=== PATIENT | male | born 1965 | race Caucasian/White ===

== ENCOUNTER 2022-08-22 06:46 | Day surgery (SDC) | payer OTHER ==
[~2022-08-22] VITALS: Ht 185.4 cm; Wt 90.3 kg
[~2022-08-22 06:46] MED LIST: ACEBUTCAFT PO; AMOX500 PO; CYCL10 PO; HYDACE5 PO; NAPR500 PO; OTC PAIN MEDS
[2022-08-22] MEDS ORDERED: ALLO100 (07:02)
== END 2022-08-22 09:17 | disposition home or self-care (01) ==
LOC: ORSCSDS 06:46
PROVIDERS: Internal Medicine Gastroenterology
PROC: 0DBM8ZX Excision of Descending Colon, Via Natural or Artificial Opening Endoscopic, Diagnostic (ICD-10-PCS; principal; 2022-08-22 08:00)
PROC: 0DBH8ZX Excision of Cecum, Via Natural or Artificial Opening Endoscopic, Diagnostic (ICD-10-PCS; principal; 2022-08-22 08:00)
PROC: 0DBN8ZX Excision of Sigmoid Colon, Via Natural or Artificial Opening Endoscopic, Diagnostic (ICD-10-PCS; principal; 2022-08-22 08:00)
PROC: 0DBP8ZX Excision of Rectum, Via Natural or Artificial Opening Endoscopic, Diagnostic (ICD-10-PCS; principal; 2022-08-22 08:00)
PROC: 0DBL8ZX Excision of Transverse Colon, Via Natural or Artificial Opening Endoscopic, Diagnostic (ICD-10-PCS; principal; 2022-08-22 08:00)
PROC: 0DBK8ZX Excision of Ascending Colon, Via Natural or Artificial Opening Endoscopic, Diagnostic (ICD-10-PCS; principal; 2022-08-22 08:00)
DX: Z12.11 Encounter for screening for malignant neoplasm of colon (principal); D12.5 Benign neoplasm of sigmoid colon; D12.0 Benign neoplasm of cecum; D12.2 Benign neoplasm of ascending colon; D12.3 Benign neoplasm of transverse colon; D12.4 Benign neoplasm of descending colon; K62.1 Rectal polyp; K63.5 Polyp of colon; K57.30 Diverticulosis of large intestine without perforation or abscess without bleeding; F17.210 Nicotine dependence, cigarettes, uncomplicated; Z79.899 Other long term (current) drug therapy
CPT/HCPCS: 88305; J2704; J7120

== ENCOUNTER 2024-10-31 09:20 | Emergency (ER) | payer OTHER ==
[~2024-10-31] VITALS: Ht 185.4 cm; Wt 86.2 kg
[~2024-10-31 09:20] MED LIST changes: +ALLO100
[2024-10-31 09:28] VITALS: BP 125/87
== END 2024-10-31 15:15 | disposition left against medical advice (07) ==
LOC: ER 09:20
DX: R07.89 Other chest pain (principal); R06.02 Shortness of breath; R53.1 Weakness; G43.909 Migraine, unspecified, not intractable, without status migrainosus; F17.200 Nicotine dependence, unspecified, uncomplicated; Z53.29 Procedure and treatment not carried out because of patient's decision for other reasons; Z88.1 Allergy status to other antibiotic agents; Z88.8 Allergy status to other drugs, medicaments and biological substances; Z79.899 Other long term (current) drug therapy
CPT/HCPCS: 71046; 93005; 93010; 99284-25